=== PATIENT | male | born 1960 | race African-American/Black ===

== ENCOUNTER 2020-08-03 10:16 | Emergency (ER) | payer BC ==
[2020-08-03 10:22] VITALS: BMI 34.5
--- OUTSIDE RECORDS SUMMARY | 2020-08-03 10:33 | XMS ---
:1960 Author Organization [facility] Care Team Providers Name Role Phone ADUBOR, O MD Unavailable Unavailable ADUBOR, O MD Unavailable Unavailable ADUBOR, O MD Unavailable Unavailable ADUBOR, O MD Unavailable Unavailable ADUBOR, O MD Unavailable Unavailable ADUBOR, O MD Unavailable Unavailable ADUBOR, O MD Unavailable Unavailable ADUBOR, O MD Unavailable Unavailable ADUBOR, O MD Unavailable Unavailable ADUBOR, O MD Unavailable Unavailable ADUBOR, O MD Unavailable Unavailable ADUBOR, O MD Unavailable Unavailable ADUBOR, O MD Unavailable Unavailable ADUBOR, O MD Unavailable Unavailable ADUBOR, O MD Unavailable Unavailable ADUBOR, O MD Unavailable Unavailable ADUBOR, O MD Unavailable Unavailable ADUBOR, O MD Unavailable Unavailable ADUBOR, O MD Unavailable Unavailable Re-disclosure Warning The records that you are about to access may contain information from federally- assisted alcohol or drug abuse programs. If such information is present, then the following federally mandated warning applies: This information has been disclosed to you from records protected by federal confidentiality rules (42 CFR part 2). The federal rules prohibit you from making any further disclosure of this information unless further disclosure is expressly permitted by the written consent of the person to whom it pertains or as otherwise permitted by 42 CFR part 2. A general authorization for the release of medical or other information is NOT sufficient for this purpose. The Federal rules restrict any use of the information to criminally investigate or prosecute any alcohol or drug abuse patient.The records that you are about to access may contain highly sensitive health information, the redisclosure of which is protected by Article 27-F of the [facility] Public Health law. If you continue you may haveaccess to information: Regarding HIV / AIDS; Provided by facilities licensed or operated by the [facility] Office of Mental Health; or Provided by the [facility] Office for People With Developmental Disabilities. If such information is present, then the following [facility] mandated warning applies: This information has been disclosed to you from confidential records which are protected by state law. State law prohibits you from making any further disclosure of this information without the specific written consent of the person to whom it pertains, or as otherwise permitted by law. Any unauthorized further disclosure in violation of state law may result in a fine or detention sentence or both. A general authorization for the release of medical or other information is NOT sufficient authorization for further disclosure. Encounters Encounter Providers Location Date Indications Data Source(s ) (TEL) [facility] 07/29/2020 eCW1 (Dr. Pressley 12:00:00 Jabier LING EDT Adubor) Outpatient Attender: [facility] DEPT 06/29/2019 [facility] JABIER PRESSLEY 12:58:00 [facility] PM EDT - 06/29/2019 11:59:00 PM EDT Patient discharged. Medications Medication Brand Start Product Dose Route Administrative Pharmacy [facility] Indications Reaction Description Data Name Date Form Instructions Instructions Source(s) Ozempic Ozempi 06/24/ active Ozempic eCW 1 ( (0.25 mg or c 2020 (0.25 mg or C hristophe 0.5 mg (0.25 12:00: 0.5 mg dose) r Adubor) dose) 2 mg or 00 AM 2 mg/1.5 mL mg/1.5 mL 0.5 mg EDT dose) 2 mg/1.5 mL tadalafil Cialis 05/20/ active Cialis 20 mg eCW1 ( 20 MG Oral 20 mg 2020 Christop he Tablet 12:00: r Ad[facility]) [Cialis] 00 AM Cialis 20 EDT mg montelukast Anil 05/20/ active Montelu kast eCW1 ( 10 MG Oral ukast 2020 Sodium 10 mg Oc Tablet Sodium 12:00: r Adubor) Montelukast 10 mg 00 AM Sodium 10 EDT mg cetirizine Zyrtec .0 active Zyrtec 1 0 mg eCW1 ( hydrochlori 10 mg 2019 {tab( Edd ophe de 10 MG 12:00: s)} r Adubor) Oral Tablet 00 AM [Zyrtec] EDT Zyrtec 10 mg Flonase 50 Flonas .0 active Flonase 50 eCW1 ( mcg/inh e 50 2018 {spra mcg/inh Christop he mcg/in 12:00: y(s)} r Adubor) h 00 AM EST Promethazin Promet .0 active Prometh azine eCW1 (Dr. ayo francisco 2018 {ml} Hydrochlorid Elbert tophe Hydrochlori Hydroc 12:00: e 6.25 mg /5 r Adubor) de 1.25 hlorid 00 AM mL MG/ML Oral e 6.25 EST Solution mg/5 Promethazin mL e Hydrochlori de 6.25 mg/5 mL cetirizine Zyrtec .0 suspend Zyrtec 10 mg eCW1 ( hydrochlori 10 mg 2018 {tab( ed Edd ophe de 10 MG 12:00: s)} r Adubor) Oral Tablet 00 AM [Zyrtec] EST Zyrtec 10 mg febuxostat febuxo .0 active febuxost at eCW1 ( 80 MG Oral stat 2018 {tab( 80 mg Aleksandar phe Tablet 80 mg 12:00: s)} r Adubor) febuxostat 00 AM 80 mg EDT Insurance Providers Payer name Policy type / Policy ID Covered Covered constitution party's Policy Plan Coverage type constitution party ID relationship to Mario Information mario PPO [id number] Blue Cross PPO Blue Cross [id number] Workers[employer] Commercial [id number] Compensation Problems, Conditions, and Diagnoses Code Display Name Description Problem Type Effective Data Sour ce(s) Dates E88.81 Metabolic syndrome Metabolic Problem 06/24/2020 eCW1 ( syndrome 12:00:00 AM Jabier EDT Adubor) G57.11 Meralgia Meralgia Problem 06/24/2020 eCW1 (Dr. reba britton, 12:00:00 AM Christop her right lower limb EDT Ad[facility]) E66.09 Obesity due to Other obesity due Problem 06/24/2020 eCW 1 ( excess calories to excess 12:00:00 AM Christop her calories EDT Adubor) K77 Disorder of liver Liver disorders Problem 05/20/2020 eC W1 ( in diseases 12:00:00 AM Jabier classified EDT Ad[facility]) elsewhere G56.01 Carpal tunnel Carpal tunnel Problem 07/13/2019 eCW1 (Dr Aguilar syndrome syndrome, right 12:00:00 AM Christop her upper limb EDT Ad[facility]) J98.11 Atelectasis Atelectasis Problem 06/29/2019 eCW1 ( 12:00:00 AM Jabier EDT Adubor) J98.11 Atelectasis Atelectasis Diagnosis 07/15/2019 [facility] 12:00:00 AM [facility] EDT Results ID Date Data Source [id number] 06/29/2019 01:18:[address] [facility] PA and lateral chestHistory: Visit reas on: Atelectasis; Findings: No old studies are available for comparison.The heart s ize is normal. No congestive heart failure or acute infiltrates. Costophrenic angl es are sharp and the trachea is midline. Sheyla structures outline normally.No sign ificant bony abnormality is identified.Impression: No evidence of ac [place] cardiopulmonary disease. Name Value Range Interpretation Code Description Data Ev rce(s) Supporting Document(s ) Procedure Patient Treatment Plan of Care Planned Activity Planned Date Details Description Data Source (s) Ozempic (0.25 mg or 0.5 06/24/2020 eCW1 (Dr. Eugene mg dose) 2 mg/1.5 mL 12:00:00 AM EDT Adub or) cetirizine hydrochloride 05/20/2020 eCW 1 (Dr. Eugene 10 MG Oral Tablet 12:00:00 AM EDT Adubor) [Zyrtec] montelukast 10 MG Oral 05/20/2020 eCW1 (Dr. Eugene Tablet 12:00:00 AM EDT Marcos)
[2020-08-03] MEDS ORDERED: SODIUM CHLORIDE 0.9% 500 ML INFUS.BAG IV ONE (11:19)
[2020-08-03] MEDS ORDERED: ACETAMINOPHEN 1000 MG/100 ML VIAL (NON FORMULARY) IVPB ONE (11:19)
[2020-08-03] MEDS ORDERED: METOCLOPRAMIDE HCL INJECTION 10 MG/2 ML VIAL IVPUSH ONE (11:19)
--- NOTE | 2020-08-03 11:26 | PDOC ---
History of Present Illness - General Chief Complaint: Lightheaded Stated Complaint: Lightheaded Time Seen by Provider: 08/03/20 10:48 History Source: Patient Exam Limitations: No Limitations - History of Present Illness Initial Comments: 08/03/20 11:21 60-year-old male history of hypertension, diabetes, hyperlipidemia, obstructive sleep apnea uses CPAP every night, gastritis presents complaining of bilateral neck pain which began 4 weeks ago after "sleeping wrong". Neck pain has greatly improved at the present time however has been having constant throbbing headaches x 4 weeks. Experiences intermittent lightheadedness and dizziness. This morning awoke and felt spinning sensation prompting a visit to the ED. Denies nausea, fever, chills, chest pain, shortness of breath, back pain, abdominal pain, urinary complaints, changes in vision, tinnitus, weakness. Patient took ibuprofen 200 mg at approximately 8:30 AM this morning without relief of symptoms. ROS: as above PE: GENERAL: well-appearing, NAD HEAD: NCAT EYES: Pupils equal, round and reactive to light, sclera anicteric, conjunctiva clear ENT: pharynx: no erythema, no exudate, uvula midline NECK: supple, no lymphadenopathy CHEST: nontender RESP: clear, no w/r/r CARDIO: rrr, no m/g/r ABD: +BS, soft, nontender, non distended BACK: no midline spinal ttp, no CVAT EXTREMITIES: Normal range of motion, no edema NEUROLOGICAL: Normal speech, normal gait SKIN: Warm, Dry Is this a multiple visit Asthma Patient?: No Past History - Medical History Allergies/Adverse Reactions: Allergies Allergy/AdvReac Type Severity Reaction Status Date / Time Penicillins Allergy Verified 08/03/20 10:22 Home Medications: Ambulatory Orders Amlodipine Besylate 5 mg PO DAILY 08/03/20 Ascorbic Acid [Vitamin C] 500 mg PO DAILY 08/03/20 Aspirin [ASA -] 81 mg PO DAILY 08/03/20 Meclizine HCl 25 mg PO TID 4 Days #12 tablet 08/03/20 Semaglutide [Ozempic] 0 mg SQ ASDIR 08/03/20 Tadalafil [Cialis] 0 mg PO PRN 08/03/20 COPD: No - Psycho-Social/Smoking History Smoking History: Current every day smoker Information on smoking cessation initiated: No *Physical Exam - Vital Signs Last Vital Signs Temp Pulse Resp BP Pulse Ox 98.3 F 72 18 150/91 100 08/03/20 10:18 08/03/20 10:18 08/03/20 10:18 08/03/20 10:18 08/03/20 10:18 ED Treatment Course - LABORATORY CBC & Chemistry Diagram: 08/03/20 11:15 08/03/20 11:15 - RADIOLOGY Radiology Studies Ordered: Category Date Time Status HEAD CT WITHOUT CONTRAST [CT] Stat CT Scan 08/03/20 11:18 Ordered CHEST PA & LAT [RAD] Stat Radiology 08/03/20 11:20 Ordered Medical Decision Making - Medical Decision Making 08/03/20 11:26 60-year-old male history of hypertension, diabetes, hyperlipidemia, obstructive sleep apnea uses CPAP every night, gastritis presents complaining of bilateral neck pain which began 4 weeks ago after "sleeping wrong". Neck pain has greatly improved at the present time however has been having constant throbbing headaches x 4 weeks. Experiences intermittent lightheadedness and dizziness. This morning awoke and felt spinning sensation prompting a visit to the ED. Denies nausea, fever, chills, chest pain, shortness of breath, back pain, abdominal pain, urinary complaints, changes in vision, tinnitus, weakness. Patient took ibuprofen 200 mg at approximately 8:30 AM this morning without relief of symptoms. Labs including troponin Chest x-ray, EKG UA, urine culture IVF IV tylenol and reglan 10mg Reassess 08/03/20 14:57 Discussed results including chest x-ray, head CT with patient Patient feels better after IV Tylenol, Reglan, IV fluids and meclizine Agrees to follow-up with PMD this week Return precautions discussed Discharge - Discharge Information Problems reviewed: Yes Clinical Impression/Diagnosis: Dizziness Condition: Stable Disposition: HOME - Admission No - Additional Discharge Information Prescriptions: Meclizine HCl 25 mg PO TID 4 Days #12 tablet - Follow up/Referral Referrals: Oc Rodríguez [Primary Care Provider] - - Patient Discharge Instructions Additional Instructions: Take meclizine 25 mg 1 tablet every 8 hours as needed Follow-up with your doctor this week Return to ED if any worsening symptoms Also consider following up with an ENT specialist If you develop any concerning symptom return to ED - Post Discharge Activity
[2020-08-03] MEDS ORDERED: ACETAMINOPHEN INJECTION 100 ML IVPB ONE (11:28)
[2020-08-03] MEDS ORDERED: METOCLOPRAMIDE HCL INJECTION 10 MG/2 ML VIAL ONE (11:28)
[2020-08-03 11:38] LABS: BASO % 0.8 % (0-2.0); EOS % 6.8 % (0-4.5); HEMOGLOBIN 13.9 GM/dL (11.7-16.9); LYMPH % 36.1 % (8-40); MCH 31.7 pg (25.7-33.7); MCHC 33.8 g/dl (32.0-35.9); MEAN CELL VOLUME 93.9 fl (80-96); MEAN PLT VOLUME 7.9 fl (7.5-11.1); MONO % 7.5 % (3.8-10.2); NEUT % 48.8 % (42.8-82.8); PLATELET COUNT 169 K/MM3 (134-434); RBC 4.37 M/mm3 (4.00-5.60); RDW 13.3 % (11.9-15.9)
[2020-08-03 11:39] LABS: URINE APPEARANCE CLEAR; URINE BILIRUBIN NEGATIVE (NEGATIVE); URINE COLOR YELLOW; URINE GLUCOSE (UA) NEGATIVE (NEGATIVE); URINE KETONE NEGATIVE (NEGATIVE); URINE LEUK ESTERASE NEGATIVE (NEGATIVE); URINE NITRITE NEGATIVE (NEGATIVE); URINE PROTEIN NEGATIVE (NEGATIVE); URINE UROBILINOGEN 0.2 mg/dL (0.2-1.0)
[2020-08-03 11:54] LABS: CHLORIDE 104 mmol/L (98-107); POTASSIUM 4.2 mmol/L (3.5-5.1); SODIUM 140 mmol/L (136-145)
[2020-08-03 11:56] LABS: ANION GAP 4 MMOL/L (8-16); BLOOD UREA NITROGEN 12.6 mg/dL (7-18); CO2 32 mmol/L (21-32); GLUCOSE,RANDOM 119 mg/dL (74-106)
[2020-08-03 11:59] LABS: SGOT/AST 25 U/L (15-37); SGPT/ALT 41 U/L (13-61)
[2020-08-03 12:00] LABS: CREATININE 1.1 mg/dL (0.55-1.3)
[2020-08-03 12:01] LABS: BILIRUBIN,TOTAL 0.4 mg/dL (0.2-1); TOT PROT 7.3 g/dl (6.4-8.2)
[2020-08-03 12:02] LABS: ALK PHOS 60 U/L (45-117)
[2020-08-03] MEDS ORDERED: MECLIZINE HCL 25 MG TABLET (FP) ONE (14:04)
[2020-08-03] MEDS ORDERED: MECLIZINE HCL 25 MG TABLET (FP) PO ONE (14:04)
[2020-08-03 14:09] VITALS: BP 117/65; PULSE 68; TEMP 98
--- NOTE | 2020-08-04 16:10 | EKG ---
Test Reason : Blood Pressure : / mmHG Vent. Rate : 073 BPM Atrial Rate : 073 BPM P-R Int : 192 ms QRS Dur : 108 ms QT Int : 400 ms P-R-T Axes : 056 -26 022 degrees QTc Int : 440 ms NORMAL SINUS RHYTHM MINIMAL VOLTAGE CRITERIA FOR LVH, MAY BE NORMAL VARIANT BORDERLINE ECG NO PREVIOUS ECGS AVAILABLE Confirmed by LYUBOV GARCIA MD ([id number]) on 08/04/2020 4:09:48 PM Referred By: Confirmed By:LYUBOV GARCIA MD
== END 2020-08-03 15:00 | disposition home or self-care (01) ==
LOC: JER 10:16
PROC: 3E0333Z Introduction of Anti-inflammatory into Peripheral Vein, Percutaneous Approach (ICD-10-PCS; principal; 2020-08-03)
PROC: 3E033GC Introduction of Other Therapeutic Substance into Peripheral Vein, Percutaneous Approach (ICD-10-PCS; 2020-08-03)
DX: R42 Dizziness and giddiness (principal)
CPT/HCPCS: 36415; 70450-TC; 71046-TC-FY; 80053; 81003; 82550; 82553; 84484; 85025; 87086; 93005; 93010; 99285-25; J0131

== ENCOUNTER 2022-07-26 09:53 | Emergency (ER) | payer BC ==
[2022-07-26 10:51] VITALS: BP 138/68; PULSE 68; RESP 17; TEMP 97.2; BMI 34.2
== END 2022-07-26 12:27 | disposition home or self-care (01) ==
LOC: JER 09:53
DX: M79.621 Pain in right upper arm (principal)
CPT/HCPCS: 93005; 93010; 99283-25

== ENCOUNTER 2022-07-28 10:09 | Observation (INO) | payer BC ==
[2022-07-28 10:30] VITALS: BMI 34.2
[2022-07-28 12:19] LABS: BASO % 0.7 % (0-2.0); EOS % 7.2 % (0-4.5); HEMATOCRIT 40.5 % (35.4-49); HEMOGLOBIN 13.1 GM/dL (11.7-16.9); LYMPH % 43.7 % (8-40); MCH 30.5 pg (25.7-33.7); MCHC 32.4 g/dl (32.0-35.9); MEAN CELL VOLUME 94.4 fl (80-96); MEAN PLT VOLUME 7.5 fl (7.5-11.1); MONO % 12.9 % (3.8-10.2); NEUT % 35.5 % (42.8-82.8); PLATELET COUNT 193 10^3/uL (134-434); RBC 4.29 M/mm3 (4.00-5.60); RDW 13.6 % (11.9-15.9); WHITE BLOOD COUNT 3.7 K/mm3 (4.0-10.0)
[2022-07-28 12:36] LABS: ALBUMIN 3.8 g/dl (3.4-5.0); BLOOD UREA NITROGEN 11.6 mg/dL (7-18); CALCIUM 8.8 mg/dL (8.5-10.1)
[2022-07-28 12:41] LABS: BILIRUBIN,TOTAL 0.4 mg/dL (0.2-1); TOT PROT 6.9 g/dl (6.4-8.2)
[2022-07-28] MEDS: amLODIPine BESYLATE 5 MG TABLET (FP) PO SCH (21:57)
[2022-07-28] MEDS: ENOXAPARIN NA (PORCINE) 40 MG/0.4 ML DISP.SYRIN SQ SCH (21:58)
[2022-07-29 02:19] VITALS: TEMP 98.5
[2022-07-29] MEDS ORDERED: ASPIRIN 81 MG CHEWABLE TABLETS ONE (08:41)
[2022-07-29] MEDS: ENOXAPARIN NA (PORCINE) 40 MG/0.4 ML DISP.SYRIN SQ SCH (09:56)
[2022-07-29] MEDS: amLODIPine BESYLATE 5 MG TABLET (FP) PO SCH (09:57)
[2022-07-29] MEDS ORDERED: ASPIRIN 81 MG CHEWABLE TABLETS PO SCH (10:00)
[2022-07-29] MEDS ORDERED: LISINOPRIL 5 MG TABLET PO SCH (10:30)
[2022-07-29] MEDS ORDERED: ATORVASTATIN CA 20 MG TABLET (FP) PO SCH (10:30)
[2022-07-29 10:31] LABS: HEMATOCRIT 41.3 % (35.4-49); HEMOGLOBIN 13.6 GM/dL (11.7-16.9); MCH 30.7 pg (25.7-33.7); MCHC 32.9 g/dl (32.0-35.9); MEAN CELL VOLUME 93.5 fl (80-96); MEAN PLT VOLUME 8.2 fl (7.5-11.1); PLATELET COUNT 196 10^3/uL (134-434); RBC 4.42 M/mm3 (4.00-5.60); RDW 13.6 % (11.9-15.9)
[2022-07-29 10:39] LABS: CALCIUM 9.2 mg/dL (8.5-10.1)
[2022-07-29 10:40] LABS: ALBUMIN 3.9 g/dl (3.4-5.0); BLOOD UREA NITROGEN 13.1 mg/dL (7-18)
[2022-07-29 10:44] LABS: PHOSPHOROUS 3.4 mg/dL (2.5-4.9)
[2022-07-29 10:46] LABS: BILIRUBIN,TOTAL 0.4 mg/dL (0.2-1)
[2022-07-29] MEDS ORDERED: NICOTINE 14 MG/24 HOURS TOPICAL PATCH TD SCH (11:15)
[2022-07-29 16:59] LABS: N-TERMINAL BNP 26.8 pg/ml (5-125)
[2022-07-29 18:25] VITALS: BP 132/78; PULSE 71; RESP 18
== END 2022-07-29 18:30 | disposition home or self-care (01) ==
LOC: JER 10:09 → INTOOBSV 16:09 → UNDOADMOB 16:09 → JERBED 16:09 → J4S 20:33 → JERBED 07-29 07:42
PROVIDERS: ADMIT Internal Medicine; ATTEND Internal Medicine
PROC: 3E013GC Introduction of Other Therapeutic Substance into Subcutaneous Tissue, Percutaneous Approach (ICD-10-PCS; principal; 2022-07-29)
DX: R07.89 Other chest pain (principal); I10 Essential (primary) hypertension; E78.5 Hyperlipidemia, unspecified; R73.03 Prediabetes; G47.33 Obstructive sleep apnea (adult) (pediatric); F17.210 Nicotine dependence, cigarettes, uncomplicated; Z79.82 Long term (current) use of aspirin; Z88.0 Allergy status to penicillin
CPT/HCPCS: 36415; 71045-TC-FY; 78452-TC; 80053; 80061; 83036; 83735; 83880; 84100; 84443; 84484; 85025; 85027; 93005; 93010; 93017; 93306-TC; 94660; 99285-25; A9502; C9803-CS; G0378; U0003; U0005